=== PATIENT | female | born 1975 | race Two or more races ===

== ENCOUNTER 2022-07-30 10:43 | Emergency (ER) | payer BC ==
[~2022-07-30] VITALS: Ht 162.6 cm; Wt 59.0 kg
[2022-07-30 11:06] VITALS: BP 125/70
[2022-07-30] MEDS ORDERED: CYCLOBENZAPRINE 10MG TABLET PO ONE (11:30)
[2022-07-30] MEDS ORDERED: KETOROLAC 30MG/ML VIAL IM ONE (11:30)
[2022-07-30] MEDS ORDERED: NAPR-677 MT ×3 (13:42→13:46)
[2022-07-30] MEDS ORDERED: CYCL5TAB MT ×3 (13:42→13:46)
[2022-07-30] MEDS ORDERED: LIDO1ADH82 TOP ×3 (13:42→13:46)
== END 2022-07-30 14:12 | disposition home or self-care (01) ==
LOC: ER 10:43
DX: S16.1XXA Strain of muscle, fascia and tendon at neck level, initial encounter (principal); S70.02XA Contusion of left hip, initial encounter; S70.01XA Contusion of right hip, initial encounter; V49.49XA Driver injured in collision with other motor vehicles in traffic accident, initial encounter; Y93.89 Activity, other specified; Y92.89 Other specified places as the place of occurrence of the external cause; Y99.8 Other external cause status; F32.9 Major depressive disorder, single episode, unspecified
CPT/HCPCS: 72070; 72125; 73521; 81025; 96372; 99284; J1885